=== PATIENT | female | born 1975 | race Caucasian/White ===

== ENCOUNTER → 2017-10-07 | Outpatient (CLI) | payer BC ==
[~2017-10-07] MED LIST: BENADRYL50 MG PO; PRENATAL1 TA7 PO; TYLENOL 325MG325 MG PO
== END ==
LOC: MC.RAD 08:25
DX: Z12.31 Encounter for screening mammogram for malignant neoplasm of breast (principal); Z98.82 Breast implant status

== ENCOUNTER → 2020-01-22 | Outpatient (CLI) | payer BC | LOC: MC.RAD 15:23 | DX: Z12.31 Encounter for screening mammogram for malignant neoplasm of breast (principal); Z98.82 Breast implant status ==

== ENCOUNTER 2020-09-12 15:45 | Observation (INO) | payer BC ==
[2020-09-12] VITALS (8 sets, daily range): BP systolic 92–113; BP diastolic 52–71; PULSE 59–74; TEMP 98.5
[~2020-09-12] VITALS: Ht 167.6 cm; Wt 63.6 kg
[2020-09-12 16:26] LABS: BASO % 0.3 % (0.0-2.0); EOS # 0.1 (0.0-0.7); GRAN # 7.3 (1.4-6.5); GRAN % 76.7 % (42.2-75.2); HEMATOCRIT 35.4 % (37.0-47.0); HEMOGLOBIN 11.9 g/dl (12.5-16.0); LYMPH # 1.6 (1.2-3.4); LYMPH % 17.1 % (20.0-51.0); MEAN CELL VOLUME 90 fl (80.0-100.0); MEAN CORPUSCULAR HEMOGLOBIN 30 pg (27.0-31.0); MEAN CORPUSCULAR HGB CONC 34 g/dl (33.0-37.0); MEAN PLATELET VOLUME 9.1 fl (7.4-10.4); MONO # 0.4 (0.1-0.6); MONO % 4.3 % (1.7-9.3); PLATELET COUNT 325 K/mm3 (130-400); RED BLOOD COUNT 3.95 M/mm3 (4.10-5.30); REDCELL DISTRIBUTION WIDTH-CV 11.9 % (11.5-14.5)
[2020-09-12 16:35] LABS: CALCIUM 9.3 mg/dL (8.4-10.2); CREATININE, serum 0.62 (0.52-1.25); POTASSIUM 3.9 mmol/L (3.4-5.0)
--- NOTE | 2020-09-12 20:00 | NUR ---
1999- PT TO ROOM 222 PER BED FROM PACU. BEDSIDE REPORT RECEIVED. AT BEDSIDE. PT ALERT AND ORIENTED, DENIES NEEDS AT THIS TIME. 2014- ICEPACK TO PERINEUM. MINIMAL SPOTTING ON PERIPAD. CRACKERS PROVIDED. 2029- SANDWHICH BOX PROVIDED. 2099- PT'S LEAVES FOR THE NIGHT, PT WISHES TO REST. DENIES NEEDS AT THIS TIME. 2229- ICEPACK CHANGED OUT. MINIMAL SPOTTING ON PERIPAD. PT DENIES NEED TO VOID AT THIS TIME.
--- NOTE | 2020-09-12 23:45 | NUR ---
2345- IV TO SALINE LOCK. PT ASSISTED TO AMBULATE TO BATHROOM. PT ABLE TO VOID 400ML WITHOUT DIFFICULTY. MINIMAL SPOTTING ON PERIPAD. CLEAN GOWN, PAD, AND PANITES PROVIDED. PT A LITTLE DIZZY ON WAY BACK TO BED. PT ASSISTED WITH NIGHT CARE ROUTINES WHILE BACK IN BED. PLAN OF CARE DISCUSSED AND QUESTIONS ANSWERED. PT DENIES FURTHER NEEDS AT THIS TIME.
[2020-09-13 04:30] VITALS: BP 95/58; PULSE 70; TEMP 98
--- NOTE | 2020-09-13 04:30 | NUR ---
0430- PT REPORTS THAT SHE HAS BEEN ABLE TO SLEEP. DENIES NEEDS AT THIS TIME
--- NOTE | 2020-09-13 06:10 | NUR ---
0610- PT UP TO BATHROOM, ABLE TO VOID, DENIES NEEDS AT THIS TIME.
[2020-09-13 08:15] VITALS: BP 107/60; PULSE 61; TEMP 98
--- NOTE | 2020-09-13 11:00 | NUR ---
Dismissed to home in via wheel chair. picks her up at [facility]. Alert, stable, ambulatory.
== END 2020-09-13 10:30 | disposition home or self-care (01) ==
LOC: COL.ER 15:45 → OB 18:35
PROVIDERS: Emergency Medicine; ADMIT Obstetrics & Gynecology
DX: N99.820 Postprocedural hemorrhage of a genitourinary system organ or structure following a genitourinary system procedure (principal); D64.9 Anemia, unspecified; Z90.710 Acquired absence of both cervix and uterus; Z98.82 Breast implant status; Z87.891 Personal history of nicotine dependence; Z79.899 Other long term (current) drug therapy
CPT/HCPCS: G0378; J0690; J1100; J1885; J2405; J2704; J3010; J7030

== ENCOUNTER → 2022-09-27 | Outpatient (CLI) | payer BC | LOC: MC.RAD 13:45 | DX: Z12.31 Encounter for screening mammogram for malignant neoplasm of breast (principal) ==

== ENCOUNTER → 2023-10-28 | Outpatient (CLI) | payer BC | LOC: MC.RAD 14:28 | DX: Z12.31 Encounter for screening mammogram for malignant neoplasm of breast (principal) ==